=== PATIENT | female | born 1990 | race Caucasian/White ===

== ENCOUNTER 2016-10-22 20:32 | Emergency (ER) | payer MEDICAID, OTHER ==
[~2016-10-22] VITALS: Ht 157.5 cm; Wt 80.5 kg
[~2016-10-22 20:32] MED LIST: CIPR-280 PO; CIPR7.5D LEFT EAR; HYDR-3989 PO; NO HOME MEDS
--- NOTE | 2016-10-22 20:32 | NUR ---
TRIAGE NOTE PT IS 37 WEEKS GESTATION SHE REPORTS MOIST COUGH AND LATERAL RIGHT RIB PAIN DENIES LEAKING FLUID, VAGINAL BLEEDING OR ABD PAIN OR CRAMPING STATES THE FETUS IS VERY ACTIVE TODAY REGISTRATION INSTRUCTED TO START PT IN ED
[2016-10-22 20:57] VITALS: Ht 157.5 cm; Wt 80.5 kg
[2016-10-22] MEDS ORDERED: PREN1TAB73 PO (21:29)
[2016-10-22] MEDS ORDERED: ACETAMINOPHEN 500 MG TABLET PO ONE (22:15)
[2016-10-22] MEDS ORDERED: PredniSONE 10 MG TABLET PO ONE (22:15)
[2016-10-22] MEDS ORDERED: ALBUTEROL/IPRATROPIUM INHAL. 2.5mg-0.5mg/3ml Neb. AEROSOL ONE (22:15)
--- NOTE | 2016-10-22 22:26 | NUR ---
RT AT BEDSIDE.
[2016-10-22] MEDS ORDERED: DiphenhydrAMINE 25 MG CAPSULE PO ONE (22:30)
--- NOTE | 2016-10-22 22:36 | NUR ---
[facility] PT GIVEN INSTRUCTION REGARDING PREDNISONE, TYLENOL AND BENADRYL. UNDERSTANDING VERBALIZED.
--- NOTE | 2016-10-22 22:54 | NUR ---
DR DR RONDON AT BEDSIDE.
--- NOTE | 2016-10-22 23:22 | ERPDOC ---
Departure Disposition Decision Date: October 22, 2016 Disposition Decision Time: 23:25 Disposition: 01 DISCHARGED HOME, SELF-CARE Impression Impression Impression: Primary Impression: URI (upper respiratory infection) URI type: unspecified viral URI Qualified Codes: B97.89 - Other viral agents as the cause of diseases classified elsewhere; J06.9 - Acute upper respiratory infection, unspecified Additional Impression: Asthma exacerbation Severity: Moderate Condition: Improved Seen By: Physician only Referrals: MECCA ZUÑIGA MD (PCP) 1 Week Patient Instructions: Asthma (ED), Upper Respiratory Infection (ED) Problems/Meds/Labs Reviewed?: Yes Medications reviewed and manag: Yes Additional Instructions: You have an asthma exacerbation (likely cough-variant asthma) caused by an upper respiratory infection. Use the albuterol every 6 hours for the next 3 days to help with your breathing and cough. Take the steroid as prescribed to help with your asthma. For your upper respiratory (cold) symptoms, take sudafed during the day and benadryl at night. Follow up with your doctor in the next week. Follow up care ordered?: Yes Mental Status: Alert, Oriented Scripts Prednisone (Prednisone) 20 Mg Tablet 40 MG PO DAILY for 5 Days, #10 TAB 0 Refills Take daily each morning Prov: M DO 10/22/16 HPI - Cough/URI General Chief Complaint: Cough,Fever,Flu,URI Stated Complaint: COUGH, PAIN IN R SIDE Time Seen by Provider: 21:37 HPI - Cough/URI Allergies: Coded Allergies: No Known Drug Allergies (Verified Allergy, Unknown, 11/10/09) Past History Past Medical History Pt denies signifigant PMH Surgical History Denies Surgeries Vaccines Hx Influenza Vaccination: Yes (03/31/11) Hx Pneumococcal Vaccination: No Physical Exam General Vitals and Pain First Documented Vital Signs Date Time Temp Pulse Resp B/P Pulse Ox O2 Delivery O2 Flow Rate FiO2 10/22/16 20:57 98.9 89 18 122/67 95 Room Air Weight: Kilograms: 80.500 Height (feet): 5 Height (inches): 2.00 Triage Pain Scale: Progress Results/Orders Orders Procedure Category Date Status Time Albuterol/Ipratropium PHA 10/22/16 Complete (Duoneb) 22:15 Prednisone PHA 10/22/16 Complete (Prednisone) 22:15 Acetaminophen PHA 10/22/16 Complete (Tylenol Extra 22:15 Diphenhydramine PHA 10/22/16 Complete (Benadryl) 22:30 Medications Current ED Medications Albuterol/ Ipratropium (Duoneb) 3 ml O ONCE AEROSOL Last administered on 22:28; Start 10/22/16 at 22:15; Stop 10/22/16 at 22:16; Status DC Diphenhydramine HCl (Benadryl) 50 mg O ONCE PO ; Start 10/22/16 at 22:15; Stop 10/22/16 at 22:16; Status Cancel Prednisone (PredniSONE) 60 mg O ONCE PO Last administered on 10/22/16 22:36; Start 10/22/16 at 22:15; Stop 10/22/16 at 22:16; Status DC Acetaminophen (Tylenol Extra Strength) 1,000 mg O ONCE PO Last administered on 10/22/16 22:37; Start 10/22/16 at 22:15; Stop 10/22/16 at 22:16; Status DC Diphenhydramine HCl (Benadryl) 50 mg O ONCE PO Last administered on 10/22/16 22:37; Start 10/22/16 at 22:30; Stop 10/22/16 at 22:31; Status DC Progress Progress Marked improvement in lung field wheezes following nebulizer. Improvement in cough with benadryl and steroid. Will d/c to home with steroid, albuterol, and instructions for URI tx. F/u with PCM. Pt voiced understanding of dx, prognosis , tx, and f/u need. LYNNE RONDON DO October 22, 2016 23:22
[2016-10-22] MEDS ORDERED: PRED20TA PO (23:28)
[2016-10-22] MEDS ORDERED: ALBUTEROL HFA INHALER 8gm ORAL INH ONE (23:30)
[2016-10-22] MEDS ORDERED: INHALER ASSIST DEVICE (Optichamber) MC ONE (23:30)
--- NOTE | 2016-10-22 23:43 | NUR ---
INSTRUCTIONS DISMISSAL AND MEDICATION INSTRUCTIONS GIVEN TO PT DISP INHALER WITH AEROCHAMBER THAT WAS USED BY Prabha FOR TEACHING RX PROVIDED FOR PREDNISONE WITH INSTRUCTIONS PT VERBALIZED UNDERSTANDING OF ALL
[2016-10-22 23:44] VITALS: BP 96/53; PULSE 76; RESP 16; TEMP 97.6; O2SAT 97
--- NOTE | 2016-10-22 23:44 | NUR ---
DISMISS PT DISMISSED AMBULATORY WITH SPOUSE
== END 2016-10-22 23:44 | disposition home or self-care (01) ==
LOC: ED 20:32
DX: J45.901 Unspecified asthma with (acute) exacerbation (principal); J06.9 Acute upper respiratory infection, unspecified; B97.89 Other viral agents as the cause of diseases classified elsewhere
CPT/HCPCS: 94640; 94664; 99283; J7512